=== PATIENT | male | born 1975 | race Caucasian/White ===

== ENCOUNTER 2018-12-12 10:22 | Outpatient (CLI) | payer OTHER ==
[2018-12-12 11:07] LABS: BASOPHILS % 0.5 % (0.0-1.5); NEUTROPHILS # 4.6 # k/uL (1.4-7.7)
[2018-12-12 11:22] LABS: eGFR (Non-African) > 60
[2018-12-12 11:23] LABS: HDL 53 mg/dL (>40)
[2018-12-12 12:51] LABS: A1C 4.9 % (<5.7)
== END 2018-12-12 10:40 ==
LOC: RT 10:22
PROVIDERS: ATTEND Family Medicine
DX: Z00.00 Encounter for general adult medical examination without abnormal findings (principal)
CPT/HCPCS: 36415; 80053; 80061; 83036; 85025; 86900

== ENCOUNTER 2018-12-14 09:42 | Outpatient (CLI) | payer OTHER | END 2018-12-14 09:44 | LOC: LAB 09:42 | PROVIDERS: ATTEND Family Medicine | DX: Z00.00 Encounter for general adult medical examination without abnormal findings (principal); Z11.3 Encounter for screening for infections with a predominantly sexual mode of transmission | CPT/HCPCS: 82955; 86703 ==